=== PATIENT | female | born 1990 | race Caucasian/White ===

== ENCOUNTER 2023-06-13 20:37 | Emergency (ER) | payer MEDICAID ==
[~2023-06-13] VITALS: Ht 172.7 cm; Wt 111.4 kg
[2023-06-13 20:48] VITALS: BP 130/105; PULSE 92; RESP 16; TEMP 99.2; O2SAT 96
--- NOTE | 2023-06-13 20:49 | NUR ---
WAS CALLED OUTSIDE. MOTHER STANDING OUTSIDE OF [employer]OR PUSHING AND DAD STATES SHE IS HAVING A BABY. BABY CROWING. MOM PUSHED 3 TIMES AND DELIVERED SPONTANEOUSLY HEAD FIRST AND CRYING. NO CORD INVOLVEMENT. ACROCYANOSIS PRESENT, BUT CRYING VIGOROUSLY. CORD CLAMPED X 2 AND ALLOWED DAD TO CUT CORD. BLANKET TO BABY. TAKEN TO WARMER. MOM DID WELL. TRANSFERRED TO A STRETCHER AND PROCEEDED TO BED 5.
[2023-06-13] MEDS ORDERED: methylergonovine maleate 0.2mg/ml amp IM ONE (20:50)
[2023-06-13 21:02] LABS: BASOPHILS % (AUTO) 0.2 % (0-1); EOSINOPHILS % (AUTO) 0.4 % (0-6); HEMATOCRIT 32.4 % (35.0-45.0); HEMOGLOBIN 10.9 g/dl (12.0-16.0); LYMPHOCYTES # (AUTO) 2.5 X10'3 (1.1-4.8); LYMPHOCYTES % (AUTO) 22.9 % (21-51); MEAN CORPUSCULAR HEMOGLOBIN 30.1 PG (27.0-31.0); MEAN CORPUSCULAR HGB CONC 33.5 g/dL (33.0-36.5); MEAN CORPUSCULAR VOLUME 89.8 FL (78-98); MEAN PLATELET VOLUME 8.8 FL (7.4-10.4); MONOCYTES # (AUTO) 0.8 X10'3 (0-0.9); MONOCYTES % (AUTO) 7.7 % (2-12); NEUTROPHILS # (AUTO) 7.4 X10'3 (1.8-7.7); NEUTROPHILS % (AUTO) 68.8 % (42-75); PLATELET COUNT 217 X10'3 (140-440); RED BLOOD COUNT 3.61 X10'6 (4.20-5.60); RED CELL DISTRIBUTION WIDTH 14.8 % (11.5-14.5); WHITE BLOOD COUNT 10.7 X10'3 (4.5-11.0)
[2023-06-13 21:14] LABS: ALANINE AMINOTRANSFERASE 20 U/L (12-78); ALBUMIN 2.6 G/DL (3.4-5.0); ALBUMIN/GLOBULIN RATIO 0.7 (1.1-1.5); ALKALINE PHOSPHATASE 123 IU/L (46-116); ANION GAP 14 (8-16); ASPARTATE AMINO TRANSFERASE 17 U/L (10-37); BILIRUBIN,TOTAL 0.2 MG/DL (0.1-1.0); BLOOD UREA NITROGEN 10 MG/DL (7-18); BUN/CREATININE RATIO 14.9 (10.0-20.0); CALCIUM 8.4 MG/DL (8.5-10.1); CHLORIDE 104 MMOL/L (99-107); CREATININE 0.67 MG/DL (0.40-0.90); GLUCOSE 113 MG/DL (70-104); POTASSIUM 4.3 MMOL/L (3.5-5.1); SODIUM 137 MMOL/L (135-145); TOTAL CARBON DIOXIDE 19.4 MMOL/L (24-32); TOTAL PROTEIN 6.4 G/DL (6.4-8.2); eGFR > 90 ML/MIN
--- NOTE | 2023-06-13 22:04 | NUR ---
BABY WAS BORN AT 2030
== END 2023-06-13 21:34 | disposition short-term general hospital (02) ==
LOC: ER 20:38
DX: O80 Encounter for full-term uncomplicated delivery (principal); Z3A.40 40 weeks gestation of pregnancy; Z37.0 Single live birth
CPT/HCPCS: 36415; 80053; 85025; 96372; 99285; J2210; J7030; 99283